=== PATIENT | male | born 1980 | race Caucasian/White ===

== ENCOUNTER 2016-09-03 00:07 | Inpatient (IN) | payer OTHER ==
--- NOTE | 2016-09-03 00:37 | HP ---
COWS - Scale Resting Pulse: 0= ME 80 or Below Sweatin=Flushed/Facial Moisture Restless Observation: 3= Extraneous Movement Pupil Size: 1= Pupils >than Normal Bone or Joint Aches: 4=Acute Joint/Muscle Pain Runny Nose/ Eye Tearin= Runny Nose/Eyes GI Upset > 30mins: 2= Nausea/Diarrhea Tremor Observation: 1= Tremor [place], Not Seen Yawning Observation: 0= None Anxiety or Irritability: 2=Irritable/Anxious Goose Flesh Skin: 0=Smooth Skin COWS Score: 17 CIWA Score - CIWA Score Nausea/Vomitin Muscle Tremors: 3 Anxiety: 5 Agitation: 5 Paroxysmal Sweats: 1-Minimal Palms Moist Orientation: 0-Oriented Tacttile Disturbances: 3-Moderate Itch/Numb/Burn Auditory Disturbances: 2-Mild Harshness/Frighten Visual Disturbances: 2-Mild Sensitivity Headache: 3-Moderate CIWA-Ar Total Score: 27 Admission ROS S - HPI Chief Complaint: WITHDRAWAL SX'S Allergies/Adverse Reactions: Allergies Allergy/AdvReac Type Severity Reaction Status Date / Time No Known Drug Allergies Allergy Verified 10/21/15 16:11 fish derived AdvReac Severe Vomiting Verified 09/03/16 00:26 haloperidol lactate AdvReac Severe lock jaw Verified 09/03/16 00:26 [From Haldol] shellfish derived AdvReac Severe Vomiting Verified 09/03/16 00:26 SEAFOOD AdvReac Severe Vomiting Uncoded 09/03/16 00:26 History of Present Illness: 36 Y.O MALE WITH ALCOHOLISM AND OPIOID DEPENDENCE HERE FOR DETOX TXMENT. CLIENT IS KNOWN TO [facility]. LAST ADMIT 04/2016. HE REPORTS PMHX OF HIV NON COMPLIANT WITH STRIBILD. Exam Limitations: No Limitations - Ebola screening Have you traveled outside of the country in the last 21 days: No (N) Have you had contact with anyone from an Ebola affected area: No Do you have a fever: No - Review of Systems Constitutional: Loss of Appetite, Malaise, Night Sweats EENT: reports: No Symptoms Reported Respiratory: reports: No Symptoms reported Cardiac: reports: No Symptoms Reported GI: reports: Nausea, Poor Appetite : reports: No Symptoms Reported Musculoskeletal: reports: Joint Pain Integumentary: reports: No Symptoms Reported Neuro: reports: Headache Endocrine: reports: No Symptoms Reported Hematology: reports: No Symptoms Reported Psychiatric: reports: Anxious Other Systems: Reviewed and Negative Patient History - Patient Medical History Hx Anemia: No Hx Asthma: No Hx Chronic Obstructive Pulmonary Disease (COPD): No Hx Cancer: No Hx Cardiac Disorders: No Hx Congestive Heart Failure: No Hx Hypertension: No Hx Hypercholesterolemia: No Hx Pacemaker: No HX Cerebrovascular Accident: No Hx Seizures: No Hx Dementia: No Hx Diabetes: No Hx Gastrointestinal Disorders: No Hx Liver Disease: Yes (HAD HEP. B) Hx Genitourinary Disorders: No Hx Sexually Transmitted Disorders: Yes (HIV) Hx Renal Disease (ESRD): No Hx Thyroid Disease: No Hx Human Immunodeficiency Virus (HIV): Yes (since 2000) Hx Hepatitis C: No Hx Depression: Yes Hx Suicide Attempt: Yes (stem cutter 2000) Hx Bipolar Disorder: No Hx Schizophrenia: No Other Medical History: ANXIETY - Patient Surgical History Past Surgical History: Yes Hx Neurologic Surgery: No Hx Cataract Extraction: No Hx Cardiac Surgery: No Hx Lung Surgery: No Hx Breast Surgery: No Hx Breast Biopsy: No Hx Abdominal Surgery: Yes Hx Appendectomy: No Hx Cholecystectomy: No Hx Genitourinary Surgery: No Hx Section: No Hx Orthopedic Surgery: No Other Surgical History: right inguinal hernia repair 2014 [facility] Anesthesia Reaction: No - PPD History Previous Implant?: Yes Documented Results: Negative w/o proof Implanted On Prior [facility] Admission?: Yes Date: 05/27/16 Results: no reading PPD to be Administered?: Yes - Smoking Cessation Smoking history: Current every day smoker Have you smoked in the past 12 months: Yes Aproximately how many cigarettes per day: 30 Cigars Per Day: 0 Hx Chewing Tobacco Use: No Initiated information on smoking cessation: Yes 'Breaking Loose' booklet given: 09/03/16 - Substance & Tx. History Hx Alcohol Use: Yes Hx Substance Use: Yes Substance Use Type: Alcohol, Cocaine, Heroin Hx Substance Use Treatment: Yes ([facility]) - Substances Abused HEROIN Route: Injection Frequency: Daily Amount used: 5 BAGS Age of first use: 30 Date of Last Use: 09/02/16 COCAINE Route: Inhalation Frequency: Daily Amount used: $100 Age of first use: 24 Date of Last Use: 09/02/16 BEER Route: Oral Frequency: Daily Amount used: 18- 24 OZ Age of first use: 12 Date of Last Use: 09/02/16 Family Disease History - Family Disease History Family Disease History: Diabetes: Grandparent ([id number];GF-CAD), Mother ( leukemia), [place]: Mother, Other: Father (dsa,alcohol) Admission Physical Exam [facility] - Physical General Appearance: Yes: Disheveled, Mild Distress, Irritable, Anxious HEENTM: Yes: Normocephalic, Other (DRY MM) Respiratory: Yes: Chest Non-Tender, Lungs Clear, Normal Breath Sounds, No Respiratory Distress, No Accessory Muscle Use Neck: Yes: No masses,lesions,Nodules, Supple, Trachea in good position Breast: Yes: Breast Exam Deferred Cardiology: Yes: Regular Rhythm, Regular Rate, S1, S2 Abdominal: Yes: Non Tender, Flat Genitourinary: Yes: Within Normal Limits Back: Yes: Normal Inspection Musculoskeletal: Yes: Gait Steady Extremities: Yes: Normal Range of Motion, Non-Tender, Tremors Neurological: Yes: Fully Oriented, Alert, Motor Strength 5/5 Integumentary: Yes: Dry, Track Wolff, Other (BRUISING NOTED TO BOTH ARMS SUPERFIFCAL ABRASIONS FROM SCRATCHING NOTED TO BACK OF ARMS) Lymphatic: Yes: Within Normal Limits - Diagnostic (1) Alcohol dependence with uncomplicated withdrawal Current Visit: Yes Status: Acute (2) Opioid dependence with withdrawal Current Visit: Yes Status: Acute (3) Acquired immune deficiency syndrome (AIDS) Current Visit: Yes Status: Chronic (4) Cocaine dependence Current Visit: No Status: Chronic Qualifiers: Substance use status: uncomplicated Qualified Code(s): F14.20 - Cocaine dependence, uncomplicated (5) Nicotine dependence Current Visit: No Status: Chronic Qualifiers: Nicotine product type: cigarettes Substance use status: uncomplicated Qualified Code(s): F17.210 - Nicotine dependence, cigarettes, uncomplicated Cleared for Admission [facility] - Detox or Rehab [facility] Level of Care: Medically Managed Detox Regimen/Protocol: Methadone/Librium [facility] Breath Alcohol Content Breath Alcohol Content: 0.006 Vital Signs - Vital Signs Vital Signs Refused: No Temperature: 96.1 F Temperature Source: Oral Pulse Rate: 77 Respiratory Rate: 18 Blood Pressure: 118/69 BP Location: Left Arm Blood Pressure Position: Sitting - Height Height: 5 ft 8 in - Weight Weight: 63.503 kg Weight Measurement Method: Standing Scale Body Mass Index (BMI): 21.2 Urine Drug Screen - Test Device Lot Number: [id number] Expiration Date: 04/28/18 - Control Is Test Valid: Yes - Results Drug Screen Negative: Yes Urine Drug Screen Results: DEYSI-Cocaine, OPI-Opiates, OXY-Oxycodone
[2016-09-03 00:44] VITALS: BMI 21.2
[2016-09-03] MEDS ORDERED: IBUPROFEN 400 MG TABLET (FP) PO PRN (00:45)
[2016-09-03] MEDS ORDERED: METHADONE HCL 10 MG TABLET (FOR DETOX USE ONLY) PO ONE ×3 (00:45→22:00)
[2016-09-03] MEDS ORDERED: chlordiazePOXIDE HCL 25 MG CAPSULE PO ONE (00:45)
[2016-09-03] MEDS ORDERED: chlordiazePOXIDE HCL 25 MG CAPSULE PO PRN (00:45)
[2016-09-03] MEDS ORDERED: LOPERAMIDE HCL 2 MG CAPSULE PO PRN (00:45)
[2016-09-03] MEDS ORDERED: P-EPHED 60MG/TRIPROLIDI 2.5MG TABLET PO PRN (00:45)
[2016-09-03] MEDS ORDERED: ACETAMINOPHEN 325 MG TABLET (FP) PO PRN (00:45)
[2016-09-03] MEDS ORDERED: MAGNESIUM HYDROX 2400MG/30ML ORAL SUSPENSION 30 ML CUP PO PRN (00:45)
[2016-09-03] MEDS ORDERED: NICOTINE POLACRILEX 2 MG GUM BUC PRN (00:45)
[2016-09-03] MEDS ORDERED: hydrOXYzine PAMOATE 50 MG CAPSULE (FP) PO PRN (00:45)
[2016-09-03] MEDS ORDERED: MAG HYDROX/AL HYDROX/SIMETH 30 ML UNIT-DOSE CUP PO PRN (00:45)
[2016-09-03] MEDS ORDERED: MENTHOL/PHENOL 1 EACH UD MM PRN (00:45)
[2016-09-03] MEDS ORDERED: MAGNESIUM CITRATE 300 ML BOTTLE PO PRN (00:45)
[2016-09-03] MEDS: chlordiazePOXIDE HCL 25 MG CAPSULE PO SCH ×4 (05:08→22:07)
[2016-09-03] MEDS ORDERED: INFLUENZA VACCINE 45 MCG/0.5 ML (MDV 16-17) IM ONE (07:01)
[2016-09-03] MEDS ORDERED: BACITRACIN 30 GM TUBE TOPICAL OINTMENT TP SCH (10:00)
[2016-09-03] MEDS: NICOTINE 21 MG/24 HOURS TOPICAL PATCH TD SCH (10:39)
[2016-09-03] MEDS: PRENATAL VITAMINS W/ FOLIC ACID TABLET (FP) PO SCH (10:39)
[2016-09-03 10:44] LABS: ALBUMIN 3.1 g/dl (3.4-5.0); ALK PHOS 72 U/L (45-117); ANION GAP 7 (8-16); BILIRUBIN,TOTAL 0.4 mg/dL (0.2-1.0); CALCIUM 8.2 mg/dL (8.5-10.1); CO2 28 mmol/L (21-32); CREATININE 0.8 mg/dL (0.7-1.3); GLUCOSE,RANDOM 86 mg/dL (74-106); SGOT/AST 20 U/L (15-37); SGPT/ALT 21 U/L (12-78); TOT PROT 7.2 g/dl (6.4-8.2)
[2016-09-03 11:10] LABS: MCH 25.6 pg (25.7-33.7); MCHC 32.8 g/dl (32.0-35.9); MEAN CELL VOLUME 78.1 fl (80-96); MEAN PLT VOLUME 9.2 fl (7.5-11.1); PLATELET COUNT 251 K/MM3 (134-434); RDW 14.3 % (11.9-15.9); WHITE BLOOD COUNT 4.6 K/mm3 (4.0-10.0)
--- NOTE | 2016-09-03 11:20 | PN ---
[facility] CIWA - CIWA Score Nausea/Vomitin-No Nausea/No Vomiting Muscle Tremors: 4-Moderate,w/Arms Extend Anxiety: 3 Agitation: 4-Moderately Restless Paroxysmal Sweats: 3 Orientation: 0-Oriented Tacttile Disturbances: 0-None Auditory Disturbances: 0-None Visual Disturbances: 0-None Headache: 1-Very Mild CIWA-Ar Total Score: 15 [facility] COWS - Scale Resting Pulse: 1= [place] 81-100 Sweatin=Flushed/Facial Moisture Restless Observation: 0= Sits Still Pupil Size: 0= Normal to Room Light Bone or Joint Aches: 2= Severe Diffuse Aches Runny Nose/ Eye Tearin= Nasal Congestion GI Upset > 30mins: 2= Nausea/Diarrhea Tremor Observation of Outstretched Hands: 2= Slight Tremor Visible Yawning Observation: 2= >3x During Session Anxiety or Irritability: 2=Irritable/Anxious Goose Flesh Skin: 0=Smooth Skin COWS Score: 14 S Progress Note (SOAP) Subjective: irritable i dont want to be bothered agitation interrupted sleep sweats Objective: 09/03/16 11:19 Vital Signs Temperature 98.1 F 09/03/16 10:07 Pulse Rate 83 09/03/16 10:07 Respiratory Rate 18 09/03/16 10:07 Blood Pressure 108/55 09/03/16 10:07 O2 Sat by Pulse Oximetry (%) Laboratory Tests 09/03/16 07:00 Sodium 141 Potassium 3.7 Chloride 106 Carbon Dioxide 28 Anion Gap 7 L BUN 6 L Creatinine 0.8 D Creat Clearance w eGFR > 60 Random Glucose 86 Calcium 8.2 L Total Bilirubin 0.4 D AST 20 D ALT 21 D Alkaline Phosphatase 72 D Total Protein 7.2 Albumin 3.1 L labs pending awake/alert lying in bed no acute distress Assessment: 09/03/16 11:19 withdrawal sx Plan: continue detox increase fluids uncooperative labs pending
[2016-09-03] MEDS ORDERED: PNEUMOC 13-VAL CONJ-DIP CRM/PF 0.5 ML DISP.SYRIN IM ONE (12:00)
--- NOTE | 2016-09-03 12:30 | CONSULT ---
[facility] Psychiatric Consult - Data Date of interview: 09/03/16 Admission source: [facility] Identifying data: Readmission to [facility] for this 36 y/o male seeking detox treatment on for alcohol,heroin and cocaine dependence.Patient is ,a father of two,homeless,unemployed and aupported on SSI benefits. Substance Abuse History: - Smoking Cessation. Smoking history: Current every day smoker. Have you smoked in the past 12 months: Yes. Aproximately how many cigarettes per day: 30. Cigars Per Day: 0. Hx Chewing Tobacco Use: No. Initiated information on smoking cessation: Yes. 'Breaking Loose' booklet given : 09/03/16. - Substance & Tx. History. Hx Alcohol Use: Yes. Hx Substance Use : Yes. Substance Use Type: Alcohol, Cocaine, Heroin. Hx Substance Use Treatment: Yes ([facility]). - Substances Abused. HEROIN. Route: Injection. Frequency: Daily. Amount used: 5 BAGS. Age of first use: 30. Date of Last Use : 09/02/16. COCAINE. Route: Inhalation. Frequency: Daily. Amount used: $ 100. Age of first use: 24. Date of Last Use: 09/02/16. BEER. Route: Oral. Frequency: Daily. Amount used: 18- 24 OZ. Age of first use: 12. Date of Last Use: 09/02/16. Confirmed by patient. Medical History: Significant for HIV infection since 2000,hepatitis B and history of right inguinal herniorraphy in 2014. Psychiatric History: Patient is a hostile,evasive and indifferent historian." I had a few psychiatric hospitalizations years ago but I am fine now." Previous records indicate a history of multiple psychiatric hospitalizations,suicide attempts (self-mutilation) and several diagnoses (bipolar disorder,bordeline personality disorder).Patient denies any recent contact with OPD care providers.Off psychotropic medications for months. Physical/Sexual Abuse/Trauma History: Patient denies. Additional Comment: Urine Drug Screen Results: DEYSI-Cocaine, OPI-Opiates, OXY- Oxycodone.Noted. Mental Status Exam - Mental Status Exam Alert and Oriented to: Time, Place, Person Cognitive Function: Grossly Intact Patient Appearance: Disheveled Mood: Nervous, Irritable Affect: Mood Congruent Patient Behavior: Fatigued, Uncooperative, Resitive to Care Speech Pattern: Clear Voice Loudness: Normal Thought Process: Goal Oriented Thought Disorder: Not Present Hallucinations: Denies Suicidal Ideation: Denies Homicidal Ideation: Denies Insight/Judgement: Poor Sleep: Well Appetite: Good Muscle strength/Tone: Normal Gait/Station: Normal Psychiatric Findings - Problem List ([place] 1, 2,3) (1) Alcohol dependence with uncomplicated withdrawal Current Visit: Yes Status: Acute (2) Opioid dependence with withdrawal Current Visit: Yes Status: Acute (3) Cocaine dependence Current Visit: Yes Status: Acute Qualifiers: Substance use status: uncomplicated Qualified Code(s): F14.20 - Cocaine dependence, uncomplicated (4) Nicotine dependence Current Visit: Yes Status: Acute (5) Substance induced mood disorder Current Visit: Yes Status: Acute (6) Acquired immune deficiency syndrome (AIDS) Current Visit: Yes Status: Chronic (7) Weight loss Current Visit: No Status: Acute - Initial Treatment Plan Initial Treatment Plan: Psychoeducation.Detoxification.Observation.
--- NOTE | 2016-09-03 15:17 | PN ---
[facility] Progress Note Note: pt transferred to [facility] to continue detox because his is on [facility] to begin her detox regimen. effective immediately.
[2016-09-03] MEDS: BACITRACIN 0.9 GM PACKET TP SCH (22:06)
[2016-09-03] MEDS: THIAMINE HCL 100 MG TABLET (FP) PO SCH (22:07)
[2016-09-03] MEDS: diphenhydrAMINE HCL 50 MG CAPSULE PO PRN (22:07)
[2016-09-04] MEDS: chlordiazePOXIDE HCL 25 MG CAPSULE PO SCH ×4 (05:38→22:27)
[2016-09-04] MEDS ORDERED: IBUPROFEN 400 MG TABLET (FP) PO PRN (09:08)
[2016-09-04] MEDS ORDERED: METHADONE HCL 5 MG TABLET (FOR DETOX USE ONLY) PO SCH (10:00)
[2016-09-04] MEDS: NICOTINE 21 MG/24 HOURS TOPICAL PATCH TD SCH (10:13)
[2016-09-04] MEDS: BACITRACIN 0.9 GM PACKET TP SCH ×2 (10:13→22:27)
[2016-09-04] MEDS: PRENATAL VITAMINS W/ FOLIC ACID TABLET (FP) PO SCH (10:13)
--- NOTE | 2016-09-04 10:14 | PN ---
[facility] CIWA - CIWA Score Nausea/Vomitin-No Nausea/No Vomiting Muscle Tremors: 3 Anxiety: 4-Mod. Anxious/Guarded Agitation: 3 Paroxysmal Sweats: 3 Orientation: 0-Oriented Tacttile Disturbances: 1-Very Mild Itch/Numbness Auditory Disturbances: 0-None Visual Disturbances: 0-None Headache: 0-None Present CIWA-Ar Total Score: 14 [facility] COWS - Scale Resting Pulse: 1= [place] 81-100 Sweatin=Flushed/Facial Moisture Restless Observation: 1= Difficult to Sit Still Pupil Size: 0= Normal to Room Light Bone or Joint Aches: 2= Severe Diffuse Aches Runny Nose/ Eye Tearin= Runny Nose/Eyes GI Upset > 30mins: 2= Nausea/Diarrhea Tremor Observation of Outstretched Hands: 2= Slight Tremor Visible Yawning Observation: 1= 1-2x During Session Anxiety or Irritability: 2=Irritable/Anxious Goose Flesh Skin: 0=Smooth Skin COWS Score: 15 [facility] Progress Note (SOAP) Subjective: ANXIETY,TREMORS,SWEATING,INTERRUPTED SLEEP,RESTLESS Objective: 09/04/16 10:15 Last Vital Signs Temp Pulse Resp BP Pulse Ox 98.7 F 83 18 117/75 09/04/16 06:20 09/04/16 06:20 09/04/16 06:20 09/04/16 06:20 Laboratory Tests 09/03/16 09/03/16 09/03/16 07:00 07:00 07:00 WBC 4.6 RBC 4.53 Hgb 11.6 L Hct 35.4 MCV 78.1 L MCHC 32.8 RDW 14.3 D Plt Count 251 MPV 9.2 Sodium 141 Potassium 3.7 Chloride 106 Carbon Dioxide 28 Anion Gap 7 L BUN 6 L Creatinine 0.8 D Creat Clearance w eGFR > 60 Random Glucose 86 Calcium 8.2 L Total Bilirubin 0.4 D AST 20 D ALT 21 D Alkaline Phosphatase 72 D Total Protein 7.2 Albumin 3.1 L RPR Titer Nonreactive LABS NOTED Assessment: 09/04/16 10:16 WITHDRAWAL SX. Plan: CONTINUE DETOX
[2016-09-04 11:32] LABS: URINE APPEARANCE CLEAR; URINE BILIRUBIN NEGATIVE (NEGATIVE); URINE BLOOD NEGATIVE (NEGATIVE); URINE COLOR LTYELLOW; URINE GLUCOSE (UA) NEGATIVE (NEGATIVE); URINE KETONE NEGATIVE (NEGATIVE); URINE LEUK ESTERASE NEGATIVE (NEGATIVE); URINE NITRITE NEGATIVE (NEGATIVE); URINE PROTEIN NEGATIVE (NEGATIVE); URINE UROBILINOGEN NEGATIVE E.U./dl (0.2-1.0)
[2016-09-04] MEDS: guaiFENesin/D-METHORPHAN HB 10 ML UNIT-DOSE CUPS PO PRN (15:49)
[2016-09-04] MEDS: THIAMINE HCL 100 MG TABLET (FP) PO SCH (22:27)
[2016-09-04] MEDS: diphenhydrAMINE HCL 50 MG CAPSULE PO PRN (22:29)
[2016-09-05] MEDS: chlordiazePOXIDE 5 MG CAPSULE PO SCH ×4 (05:42→22:05)
[2016-09-05] MEDS: BACITRACIN 0.9 GM PACKET TP SCH ×2 (10:08→22:05)
[2016-09-05] MEDS: PRENATAL VITAMINS W/ FOLIC ACID TABLET (FP) PO SCH (10:08)
[2016-09-05] MEDS: METHADONE HCL 5 MG TABLET (FOR DETOX USE ONLY) PO SCH (10:09)
[2016-09-05] MEDS: NICOTINE 21 MG/24 HOURS TOPICAL PATCH TD SCH (10:09)
[2016-09-05] MEDS: guaiFENesin/D-METHORPHAN HB 10 ML UNIT-DOSE CUPS PO PRN (10:14)
--- NOTE | 2016-09-05 11:28 | EKG ---
Test Reason : Blood Pressure : / mmHG Vent. Rate : 073 BPM Atrial Rate : 073 BPM P-R Int : 134 ms QRS Dur : 092 ms QT Int : 390 ms P-R-T Axes : 015 060 034 degrees QTc Int : 429 ms NORMAL SINUS RHYTHM NORMAL ECG WHEN COMPARED WITH ECG OF 19-JUN-2009 17:21, NO SIGNIFICANT CHANGE WAS FOUND Confirmed by ABE GRADY MD ([id number]) on 09/05/2016 11:28:05 AM Referred By: Confirmed By:ABE GRADY MD
[2016-09-05] MEDS: IBUPROFEN 600 MG TABLET (FP) PO PRN (11:34)
--- NOTE | 2016-09-05 13:08 | PN ---
[facility] Progress Note (SOAP) Subjective: Anxiety, restless, interrupted sleep, c/o right shoulder/arm pain requesting sling Objective: 09/05/16 13:04 Last Vital Signs Temp Pulse Resp BP Pulse Ox 97.6 F 100 H 18 108/73 09/05/16 10:48 09/05/16 10:48 09/05/16 10:48 09/05/16 10:48 Laboratory Tests 09/03/16 09/03/16 09/03/16 07:00 07:00 07:00 WBC 4.6 RBC 4.53 Hgb 11.6 L Hct 35.4 MCV 78.1 L MCHC 32.8 RDW 14.3 D Plt Count 251 MPV 9.2 Sodium 141 Potassium 3.7 Chloride 106 Carbon Dioxide 28 Anion Gap 7 L BUN 6 L Creatinine 0.8 D Creat Clearance w eGFR > 60 Random Glucose 86 Calcium 8.2 L Total Bilirubin 0.4 D AST 20 D ALT 21 D Alkaline Phosphatase 72 D Total Protein 7.2 Albumin 3.1 L Urine Color Urine Appearance Urine pH Ur Specific [place] Urine Protein Urine Glucose (UA) Urine Ketones Urine Blood Urine Nitrite Urine Bilirubin Urine Urobilinogen Ur Leukocyte Esterase RPR Titer Nonreactive 09/04/16 11:00 WBC RBC Hgb Hct MCV MCHC RDW Plt Count MPV Sodium Potassium Chloride Carbon Dioxide Anion Gap BUN Creatinine Creat Clearance w eGFR Random Glucose Calcium Total Bilirubin AST ALT Alkaline Phosphatase Total Protein Albumin Urine Color Ltyellow Urine Appearance Clear Urine pH 7.0 Ur Specific [place] 1.013 Urine Protein Negative Urine Glucose (UA) Negative Urine Ketones Negative Urine Blood Negative Urine Nitrite Negative Urine Bilirubin Negative Urine Urobilinogen Negative Ur Leukocyte Esterase Negative RPR Titer Labs noted: serum albumin 3.1 PE: right arm appears swollen at the wrist, hands/digits. Patient denies any injury and refused to elaborate stating that he is fine and only needs a sling. As per patient he came in with his arm swollen. Limited ROM noted (patient partially cooperative with examination; examination based on observation only) Assessment: 09/05/16 13:05 Withdrawal symptoms Hypoalbuminemia Right arm/shoulder/hand pain with swelling Plan: Continue detox Hypoalbuminemia: continue diet, ensure 1 can BID Right arm/shoulder/hand pain with swelling: xray right shoulder, forearm and hand, continue motrin prn, apply sling, elevate extremity on pillow/blanket when in bed
[2016-09-05] MEDS: THIAMINE HCL 100 MG TABLET (FP) PO SCH (22:05)
[2016-09-05] MEDS: diphenhydrAMINE HCL 50 MG CAPSULE PO PRN (22:07)
[2016-09-06] MEDS: chlordiazePOXIDE HCL 10 MG CAPSULE PO SCH ×2 (05:39→10:05)
[2016-09-06] MEDS: NICOTINE 21 MG/24 HOURS TOPICAL PATCH TD SCH (10:05)
[2016-09-06] MEDS: PRENATAL VITAMINS W/ FOLIC ACID TABLET (FP) PO SCH (10:05)
[2016-09-06] MEDS: METHADONE HCL 5 MG TABLET (FOR DETOX USE ONLY) PO SCH (10:05)
[2016-09-06] MEDS: BACITRACIN 0.9 GM PACKET TP SCH (10:05)
[2016-09-06] MEDS: IBUPROFEN 600 MG TABLET (FP) PO PRN (10:06)
--- NOTE | 2016-09-06 10:28 | PN ---
[facility] Progress Note (SOAP) Subjective: alert,irritable,anxious,interrupted sleep,tremor,pain in the body and back Objective: 09/06/16 10:27 Vital Signs Temperature 99.7 F H 09/06/16 09:46 Pulse Rate 116 H 09/06/16 09:46 Respiratory Rate 20 09/06/16 09:46 Blood Pressure 115/67 09/06/16 09:46 O2 Sat by Pulse Oximetry (%) Assessment: 09/06/16 10:28 withdrawal symptom Plan: continue detox
--- NOTE | 2016-09-06 11:23 | PN ---
[facility] Progress Note Note: swelling of right hand and right wrist,wearing arm sling,awaiting for xray right hand,right wrist and right shoulder
[2016-09-06 13:56] VITALS: BP 109/74; PULSE 103; TEMP 96.9
--- NOTE | 2016-09-06 15:38 | DS ---
[facility] Detox Discharge Summary Admission Date: 09/03/16 Discharge Date: 09/06/16 - History Present History: Alcohol Dependence, Cocaine Dependence, Opioid Dependence Additional Comments: patient did not want to complete treatment,signed release ama,did not want to wait,advise follow up with pmd for medical problem Pertinent Past History: aids nicotine dependence - Physical Exam Results Vital Signs: Vital Signs Temperature 96.9 F L 09/06/16 13:54 Pulse Rate 103 H 09/06/16 13:54 Respiratory Rate 20 09/06/16 13:54 Blood Pressure 109/74 09/06/16 13:54 O2 Sat by Pulse Oximetry (%) Pertinent Admission Physical Exam Findings: withdrawal symptom - Treatment Patient has Accepted a Rehab Referral to: declined - Medication Discharge Medications: Ambulatory Orders Elviteg/Marilu/Emtric/Tenofo Dis [Stribild Tablet] 1 each PO DAILY 02/23/15 Quetiapine Fumarate [Seroquel -] 50 mg PO HS #30 10/22/15 - AMA Did Patient Leave Against Medical Advice: Yes
--- NOTE | 2016-09-06 15:38 | PN ---
S Progress Note Note: patient did not want to complete treatment,did not want to wait,signed release ama,advise follow up with pmd for medical problem,has all medications at home
[2016-09-07] MEDS ORDERED: METHADONE HCL 10 MG TABLET (FOR DETOX USE ONLY) PO SCH (10:00)
[2016-09-08] MEDS ORDERED: METHADONE HCL 10 MG TABLET (FOR DETOX USE ONLY) PO SCH (06:00)
== END 2016-09-06 15:30 | disposition left against medical advice (07) | DRG 770 ==
LOC: YASAS 00:07 → Y6N 00:53 → Y3N 15:35
PROVIDERS: ADMIT Internal Medicine; ATTEND Internal Medicine
PROC: HZ2ZZZZ Detoxification Services for Substance Abuse Treatment (ICD-10-PCS; principal; 2016-09-03)
DX: F11.23 Opioid dependence with withdrawal (principal); F10.230 Alcohol dependence with withdrawal, uncomplicated; F14.20 Cocaine dependence, uncomplicated; F17.210 Nicotine dependence, cigarettes, uncomplicated; F19.24 Other psychoactive substance dependence with psychoactive substance-induced mood disorder; B20 Human immunodeficiency virus [HIV] disease; R22.31 Localized swelling, mass and lump, right upper limb; E88.09 Other disorders of plasma-protein metabolism, not elsewhere classified; Z87.898 Personal history of other specified conditions; Z91.14 Patient's other noncompliance with medication regimen; Z86.19 Personal history of other infectious and parasitic diseases; Z91.5 Personal history of self-harm
CPT/HCPCS: 36415; 73090-TC-RT; 73110-TC-RT; 73130-TC-RT; 80053; 81003; 85027; 86593; 93005; 93010

== ENCOUNTER 2018-03-08 10:30 | Inpatient (IN) | payer OTHER ==
[2018-03-08 11:05] VITALS: BMI 14.8
--- NOTE | 2018-03-08 11:59 | HP ---
COWS - Scale Resting Pulse: 1= OK 81-100 Sweatin= Chills/Flushing Restless Observation: 1= Difficult to Sit Still Pupil Size: 0= Normal to Room Light Bone or Joint Aches: 2= Severe Diffuse Aches Runny Nose/ Eye Tearin= Runny Nose/Eyes GI Upset > 30mins: 2= Nausea/Diarrhea Tremor Observation: 2= Slight Tremor Visible Yawning Observation: 2= >3x During Session Anxiety or Irritability: 2=Irritable/Anxious Goose Flesh Skin: 0=Smooth Skin COWS Score: 15 CIWA Score - CIWA Score Nausea/Vomitin-Mild Nausea/No Vomiting Muscle Tremors: 4-Moderate,w/Arms Extend Anxiety: 4-Mod. Anxious/Guarded Agitation: 4-Moderately Restless Paroxysmal Sweats: 1-Minimal Palms Moist Orientation: 0-Oriented Tacttile Disturbances: 1-Very Mild Itch/Numbness Auditory Disturbances: 0-None Visual Disturbances: 0-None Headache: 0-None Present CIWA-Ar Total Score: 15 Admission [facility] - HPI Chief Complaint: opiate and alcohol withdrawal sx Allergies/Adverse Reactions: Allergies Allergy/AdvReac Type Severity Reaction Status Date / Time No Known Drug Allergies Allergy Verified 03/08/18 11:54 haloperidol lactate AdvReac Severe lock jaw Verified 03/08/18 11:54 [From Haldol] SEAFOOD Allergy Severe Hives Uncoded 03/08/18 11:54 History of Present Illness: 37 years old male with long history of alcohol and opiate and nicotine dependence has hiv hepatitis c bipolar ii is admitted to detox Exam Limitations: No Limitations - Ebola screening Have you traveled outside of the country in the last 21 days: No (N) Have you had contact with anyone from an Ebola affected area: No Have you been sick,other than usual withdrawal symptoms: No Do you have a fever: No - Review of Systems Constitutional: Loss of Appetite, Changes in sleep, Unintentional Wgt. Loss, Unexplained wgt Loss EENT: reports: No Symptoms Reported Respiratory: reports: No Symptoms reported Cardiac: reports: No Symptoms Reported GI: reports: Nausea, Poor Appetite, Poor Fluid Intake, Abdominal cramping : reports: No Symptoms Reported Musculoskeletal: reports: Back Pain, Joint Pain, Muscle Pain, Neck Pain Integumentary: reports: Change in Color (arms), Erythema (left eye brow fell 03/06) Neuro: reports: Tremors Endocrine: reports: No Symptoms Reported Hematology: reports: No Symptoms Reported Psychiatric: reports: Judgement Intact, Orientated x3, Anxious, Depressed Other Systems: Reviewed and Negative Patient History - Patient Medical History Hx Anemia: No Hx Asthma: No Hx Chronic Obstructive Pulmonary Disease (COPD): No Hx Cancer: No Hx Cardiac Disorders: No Hx Congestive Heart Failure: No Hx Hypertension: No Hx Hypercholesterolemia: No Hx Pacemaker: No HX Cerebrovascular Accident: No Hx Seizures: No Hx Dementia: No Hx Diabetes: No Hx Gastrointestinal Disorders: No Hx Liver Disease: Yes (HAD HEP. B) Hx Genitourinary Disorders: No Hx Sexually Transmitted Disorders: Yes (HIV+) Hx Renal Disease (ESRD): No Hx Thyroid Disease: No Hx Human Immunodeficiency Virus (HIV): Yes (since 2000) Hx Hepatitis C: Yes Hx Depression: No Hx Suicide Attempt: Yes (cut last age 25) Hx Bipolar Disorder: Yes Hx Schizophrenia: No - Patient Surgical History Past Surgical History: Yes Hx Neurologic Surgery: No Hx Cataract Extraction: No Hx Cardiac Surgery: No Hx Lung Surgery: No Hx Breast Surgery: No Hx Breast Biopsy: No Hx Abdominal Surgery: Yes Hx Appendectomy: No Hx Cholecystectomy: No Hx Genitourinary Surgery: No Hx Orthopedic Surgery: No Other Surgical History: right inguinal hernia repair 2014 [facility] Anesthesia Reaction: No - PPD History Previous Implant?: Yes Documented Results: Negative w/proof Implanted On Prior R Admission?: Yes Date: 09/05/16 Results: no reading PPD to be Administered?: Yes - Smoking Cessation Smoking history: Current every day smoker Have you smoked in the past 12 months: Yes Aproximately how many cigarettes per day: 3 Cigars Per Day: 0 Hx Chewing Tobacco Use: No Initiated information on smoking cessation: Yes 'Breaking Loose' booklet given: 03/08/18 - Substance & Tx. History Hx Alcohol Use: Yes Hx Substance Use: Yes Substance Use Type: Alcohol, Cocaine, Heroin, Opiates Hx Substance Use Treatment: Yes (06/2017 [facility]) - Substances Abused Heroin Route: Injection Frequency: Daily Amount used: 15-20 bags Age of first use: 19 Date of Last Use: 03/08/18 Cocaine Route: Smoking Frequency: Daily Amount used: $200-300 Age of first use: 15 Date of Last Use: 03/08/18 Alcohol-vodka/bia Route: Oral Frequency: Daily Amount used: 2 pts./4-6 (12 oz.) Age of first use: 16 Date of Last Use: 03/07/18 Family Disease History - Family Disease History Family Disease History: Diabetes: Grandparent ([id number];GF-CAD), Mother ( leukemia), CA: Mother, Other: Father (alcohol) Admission Physical Exam [facility] - Vital Signs Vital Signs: Vital Signs - 24 hr 03/08/18 11:03 Temperature 97.2 F L Pulse Rate 97 H Respiratory 16 Rate Blood Pressure 105/68 - Physical General Appearance: Yes: Appropriately Dressed, Mild Distress, Thin, Tremorous, Irritable, Sweating, Anxious HEENTM: Yes: Hearing grossly Normal, Normocephalic, Normal Voice Respiratory: Yes: Chest Non-Tender, Lungs Clear, Normal Breath Sounds, No Respiratory Distress, No Accessory Muscle Use Neck: Yes: Supple, Trachea in good position Breast: Yes: Breasts Symetrical, No Discharge Cardiology: Yes: Regular Rhythm, S1, S2, Tachycardia Abdominal: Yes: Non Tender, Flat, Increased Bowel Sounds Genitourinary: Yes: Within Normal Limits Back: Yes: Normal Inspection Musculoskeletal: Yes: full range of Motion, Gait Steady Extremities: Yes: Normal Inspection, Normal Range of Motion, Non-Tender, Tremors , Swelling (left leg) Neurological: Yes: Fully Oriented, Alert, Normal Response, Depressed Affect Integumentary: Yes: Warm, Track Wolff Lymphatic: Yes: Within Normal Limits - Diagnostic (1) Alcohol dependence with uncomplicated withdrawal Current Visit: Yes Status: Acute (2) Nicotine dependence Current Visit: Yes Status: Acute (3) Opioid dependence with withdrawal Current Visit: Yes Status: Acute (4) Weight loss Current Visit: Yes Status: Acute (5) Nicotine dependence Current Visit: Yes Status: Acute Qualifiers: Nicotine product type: cigarettes Substance use status: in withdrawal Qualified Code(s): F17.213 - Nicotine dependence, cigarettes, with withdrawal Cleared for Admission [facility] - Detox or Rehab [facility] Level of Care: Medically Managed Detox Regimen/Protocol: Methadone/Librium [facility] Breath Alcohol Content Breath Alcohol Content: 0 Urine Drug Screen - Control Is Test Valid: Yes - Results Drug Screen Negative: No Urine Drug Screen Results: DEYSI-Cocaine, OPI-Opiates, MET-Methamphetamine, MTD- Methadone, TCA-Tricyclic Antidepress
[2018-03-08] MEDS ORDERED: MAGNESIUM HYDROX 2400MG/30ML ORAL SUSPENSION 30 ML CUP PO PRN (12:09)
[2018-03-08] MEDS ORDERED: LOPERAMIDE HCL 2 MG CAPSULE PO PRN (12:09)
[2018-03-08] MEDS ORDERED: IBUPROFEN 400 MG TABLET (FP) PO PRN (12:09)
[2018-03-08] MEDS ORDERED: NICOTINE POLACRILEX 2 MG GUM BUC PRN (12:09)
[2018-03-08] MEDS ORDERED: MAGNESIUM CITRATE 300 ML BOTTLE PO PRN (12:09)
[2018-03-08] MEDS ORDERED: MENTHOL/PHENOL 1 EACH UD MM PRN (12:09)
[2018-03-08] MEDS ORDERED: ACETAMINOPHEN 325 MG TABLET (FP) PO PRN (12:09)
[2018-03-08] MEDS ORDERED: guaiFENesin/D-METHORPHAN HB 10 ML UNIT-DOSE CUPS PO PRN (12:09)
[2018-03-08] MEDS ORDERED: MAG HYDROX/AL HYDROX/SIMETH 30 ML UNIT-DOSE CUP PO PRN (12:09)
[2018-03-08] MEDS ORDERED: P-EPHED 60MG/TRIPROLIDI 2.5MG TABLET PO PRN (12:09)
[2018-03-08] MEDS ORDERED: METHADONE HCL 10 MG TABLET (FOR DETOX USE ONLY) PO ONE ×2 (14:05→23:00)
[2018-03-08] MEDS: chlordiazePOXIDE HCL 25 MG CAPSULE PO PRN ×2 (14:11→22:48)
[2018-03-08] MEDS: BACITRACIN 0.9 GM PACKET TP SCH ×3 (14:11→22:47)
[2018-03-08] MEDS: NICOTINE 14 MG/24 HOURS TOPICAL PATCH TD SCH (14:13)
--- NOTE | 2018-03-08 14:20 | EKG ---
Test Reason : Blood Pressure : / mmHG Vent. Rate : 061 BPM Atrial Rate : 061 BPM P-R Int : 110 ms QRS Dur : 092 ms QT Int : 366 ms P-R-T Axes : 011 078 083 degrees QTc Int : 368 ms SINUS RHYTHM WITH SHORT WI NONSPECIFIC T WAVE ABNORMALITY ABNORMAL ECG WHEN COMPARED WITH ECG OF 03-SEP-2016 01:14, NONSPECIFIC T WAVE ABNORMALITY, WORSE IN LATERAL LEADS QT HAS SHORTENED Confirmed by ALDO SELBY, AVEL ([id number]) on 03/08/2018 2:20:01 PM Referred By: Confirmed By:AVEL CARLSON MD
[2018-03-08] MEDS: PATIENT'S OWN MEDICATION (NON-FORMULARY) (Fluconazole [Fluconazole] 200 MG) PO SCH (17:52)
[2018-03-08] MEDS: PATIENT'S OWN MEDICATION (NON-FORMULARY) (Amoxicillin/Potassium Clav [Amox-Clav 875-125 Mg PO SCH (17:52)
[2018-03-08] MEDS: PATIENT'S OWN MEDICATION (NON-FORMULARY) (Sulfamethoxazole/Trimethoprim [Sulfamethoxazole- PO SCH ×2 (17:52→22:48)
[2018-03-08] MEDS: chlordiazePOXIDE HCL 25 MG CAPSULE PO SCH ×2 (18:02→22:56)
[2018-03-08] MEDS ORDERED: MELATONIN 5 MG TABLETS PO PRN (22:00)
[2018-03-08] MEDS: THIAMINE HCL 100 MG TABLET (FP) PO SCH (22:48)
[2018-03-09] MEDS: chlordiazePOXIDE HCL 25 MG CAPSULE PO SCH ×4 (06:39→23:32)
--- NOTE | 2018-03-09 07:43 | CONSULT ---
[facility] Psychiatric Consult - Data Date of interview: 03/09/18 Admission source: [facility] Identifying data: This is 37 years old male, , father of two with long history of alcohol and opiate and nicotine dependence, with unclear past psychiatric hospitalization history, history of Bipolar Disorder, is here reporting withdrawal symptoms and seeking for detox. Substance Abuse History: Urine Drug Screen Results: DEYSI-Cocaine, OPI-Opiates, MET-Methamphetamine, MTD-Methadone, TCA-Tricyclic Antidepress. Smoking history : Current every day smoker. Have you smoked in the past 12 months: Yes. Aproximately how many cigarettes per day: 3. Cigars Per Day: 0. Hx Chewing Tobacco Use: No. Initiated information on smoking cessation: Yes. 'Breaking Loose' booklet given: 03/08/18. - Substance & Tx. History. Hx Alcohol Use: Yes. Hx Substance Use: Yes. Substance Use Type: Alcohol, Cocaine, Heroin, Opiates. Hx Substance Use Treatment: Yes (06/2017 [facility]). - Substances Abused. Heroin. Route: Injection. Frequency: Daily. Amount used: 15-20 bags. Age of first use: 19. Date of Last Use: 03/08/18. Cocaine. Route: Smoking. Frequency: Daily. Amount used: $200-300. Age of first use: 15. Date of Last Use: 03/08/18. Alcohol-vodka/bia. Route: Oral. Frequency: Daily. Amount used: 2 pts./4-6 (12 oz.). Age of first use: 16. Date of Last Use: 03/07/18 Medical History: Weight loss history Psychiatric History: As per computer there is a history of Bipolar Disorder, there is no medications history.Patient is poor historyan, reports unclear psychiatric admsision on about 10 years ago, at age [age] years old after suicidal attempt/ideations, reports no suicidal history since then, reports no medications taking prior to admission. Physical/Sexual Abuse/Trauma History: Unclear Additional Comment: Urine Drug Screen Results: DEYSI-Cocaine, OPI-Opiates, MET- Methamphetamine, MTD-Methadone, TCA-Tricyclic Antidepress. Observation. Detox Unit Care Protocol. Mental Status Exam - Mental Status Exam Alert and Oriented to: Person Cognitive Function: Fair Patient Appearance: Unkempt Mood: Sad Affect: Flat Patient Behavior: Sedated Speech Pattern: Delayed Voice Loudness: Moderately Soft/Quiet Thought Process: Circumstantial Thought Disorder: Being Controlled Hallucinations: Denies Suicidal Ideation: Denies Homicidal Ideation: Denies Insight/Judgement: Fair Sleep: Difficulty falling asleep Appetite: Weight loss Muscle strength/Tone: Mild Hypotonicity Gait/Station: Shuffling Additional Comments: Observation. Detox Unit Care Protocol. Psychiatric Findings - Problem List ([place] 1, 2,3) (1) Bipolar disorder Current Visit: Yes Status: Suspected (2) Alcohol dependence with uncomplicated withdrawal Current Visit: Yes Status: Acute (3) Nicotine dependence Current Visit: Yes Status: Acute (4) Opioid dependence with withdrawal Current Visit: Yes Status: Acute (5) Weight loss Current Visit: Yes Status: Acute (6) Cocaine dependence Current Visit: No Status: Acute Qualifiers: Substance use status: uncomplicated Qualified Code(s): F14.20 - Cocaine dependence, uncomplicated (7) Substance induced mood disorder Current Visit: No Status: Acute (8) Acquired immune deficiency syndrome (AIDS) Current Visit: No Status: Chronic - Initial Treatment Plan Initial Treatment Plan: Observation. Detox Unit Care Protocol.
--- NOTE | 2018-03-09 09:39 | PN ---
[facility] CIWA - CIWA Score Nausea/Vomitin Muscle Tremors: 3 Anxiety: 3 Agitation: 2 Paroxysmal Sweats: 1-Minimal Palms Moist Orientation: 0-Oriented Tacttile Disturbances: 1-Very Mild Itch/Numbness Auditory Disturbances: 1-Very Mild Visual Disturbances: 0-None Headache: 2-Mild CIWA-Ar Total Score: 16 [facility] COWS - Scale Resting Pulse: 0= [place] 80 or Below Sweatin= Chills/Flushing Restless Observation: 3= Extraneous Movement Pupil Size: 1= Pupils >than Normal Bone or Joint Aches: 2= Severe Diffuse Aches Runny Nose/ Eye Tearin= Runny Nose/Eyes GI Upset > 30mins: 2= Nausea/Diarrhea Tremor Observation of Outstretched Hands: 2= Slight Tremor Visible Yawning Observation: 1= 1-2x During Session Anxiety or Irritability: 2=Irritable/Anxious Goose Flesh Skin: 0=Smooth Skin COWS Score: 16 [facility] Progress Note (SOAP) Subjective: alert,irritable,anxious,interrupted sleep,tremor,pain in the body and back Objective: 03/09/18 09:36 Vital Signs Temperature 99.3 F 03/08/18 22:10 Pulse Rate 62 03/09/18 07:20 Respiratory Rate 16 03/09/18 07:20 Blood Pressure 125/54 03/09/18 07:20 O2 Sat by Pulse Oximetry (%) ekg nsr [id number] no chest pain,no sob,no dizziness labs pending Assessment: 03/09/18 09:38 withdrawal symptom Plan: continue detox
[2018-03-09] MEDS: PATIENT'S OWN MEDICATION (NON-FORMULARY) (Fluconazole [Fluconazole] 200 MG) PO SCH (09:51)
[2018-03-09] MEDS: PATIENT'S OWN MEDICATION (NON-FORMULARY) (Amoxicillin/Potassium Clav [Amox-Clav 875-125 Mg PO SCH (09:51)
[2018-03-09] MEDS: BACITRACIN 0.9 GM PACKET TP SCH ×4 (09:51→23:30)
[2018-03-09] MEDS: PATIENT'S OWN MEDICATION (NON-FORMULARY) (Sulfamethoxazole/Trimethoprim [Sulfamethoxazole- PO SCH (09:52)
[2018-03-09] MEDS: NICOTINE 14 MG/24 HOURS TOPICAL PATCH TD SCH (09:55)
[2018-03-09] MEDS ORDERED: PRENATAL VITAMINS W/ FOLIC ACID TABLET (FP) PO SCH (10:00)
[2018-03-09] MEDS ORDERED: METHADONE HCL 10 MG TABLET (FOR DETOX USE ONLY) PO SCH (10:00)
[2018-03-09 10:13] LABS: HEMOGLOBIN 7.2 GM/dL (11.7-16.9); MCH 25.3 pg (25.7-33.7); MCHC 32.6 g/dl (32.0-35.9); MEAN CELL VOLUME 77.6 fl (80-96); MEAN PLT VOLUME 9.6 fl (7.5-11.1); PLATELET COUNT 411 K/MM3 (134-434); RBC 2.84 M/mm3 (4.00-5.60); RDW 14.9 % (11.9-15.9); WHITE BLOOD COUNT 7.1 K/mm3 (4.0-10.0)
[2018-03-09 10:31] LABS: CHLORIDE 104 mmol/L (98-107); POTASSIUM 3.2 mmol/L (3.5-5.1); SGOT/AST 53 U/L (15-37); SODIUM 138 mmol/L (136-145)
[2018-03-09 10:42] LABS: ALBUMIN 1.7 g/dl (3.4-5.0); ALK PHOS 372 U/L (45-117); ANION GAP 10 (8-16); BILIRUBIN,TOTAL 0.3 mg/dL (0.2-1.0); BLOOD UREA NITROGEN 10 mg/dL (7-18); CALCIUM 7.4 mg/dL (8.5-10.1); CO2 24 mmol/L (21-32); CREATININE 0.6 mg/dL (0.7-1.3); GLUCOSE,RANDOM 104 mg/dL (74-106); SGPT/ALT 41 U/L (12-78); TOT PROT 6.5 g/dl (6.4-8.2)
[2018-03-09] MEDS ORDERED: PATIENT'S OWN MEDICATION (NON-FORMULARY) (Sulfamethoxazole/Trimethoprim [Sulfamethoxazole- PO SCH (18:00)
[2018-03-09] MEDS ORDERED: PATIENT'S OWN MEDICATION (NON-FORMULARY) (Fluconazole [Fluconazole] 200 MG) PO SCH (18:00)
[2018-03-09] MEDS ORDERED: PATIENT'S OWN MEDICATION (NON-FORMULARY) (Amoxicillin/Potassium Clav [Amox-Clav 875-125 Mg PO SCH (18:00)
--- NOTE | 2018-03-09 20:18 | PN ---
[facility] Progress Note Note: Vital Signs Temperature 97 F L 03/09/18 18:22 Pulse Rate 104 H 03/09/18 18:22 Respiratory Rate 18 03/09/18 18:22 Blood Pressure 119/75 03/09/18 18:22 O2 Sat by Pulse Oximetry (%) Laboratory Last Values WBC 7.1 K/mm3 (4.0-10.0) 03/09/18 06:00 RBC 2.84 M/mm3 (4.00-5.60) L 03/09/18 06:00 Hgb 7.2 GM/dL (11.7-16.9) L 03/09/18 06:00 Hct 22.0 % (35.4-49) L D 03/09/18 06:00 MCV 77.6 fl (80-96) L 03/09/18 06:00 MCH 25.3 pg (25.7-33.7) L 03/09/18 06:00 MCHC 32.6 g/dl (32.0-35.9) 03/09/18 06:00 RDW 14.9 % (11.9-15.9) 03/09/18 06:00 Plt Count 411 K/MM3 (134-434) D 03/09/18 06:00 MPV 9.6 fl (7.5-11.1) 03/09/18 06:00 Sodium 138 mmol/L (136-145) 03/09/18 06:00 Potassium 3.2 mmol/L (3.5-5.1) L 03/09/18 06:00 Chloride 104 mmol/L (98-107) 03/09/18 06:00 Carbon Dioxide 24 mmol/L (21-32) 03/09/18 06:00 Anion Gap 10 (8-16) 03/09/18 06:00 BUN 10 mg/dL (7-18) 03/09/18 06:00 Creatinine 0.6 mg/dL (0.7-1.3) L 03/09/18 06:00 Creat Clearance w eGFR > 60 (>60) 03/09/18 06:00 Random Glucose 104 mg/dL (74-106) D 03/09/18 06:00 Calcium 7.4 mg/dL (8.5-10.1) L 03/09/18 06:00 Total Bilirubin 0.3 mg/dL (0.2-1.0) 03/09/18 06:00 AST 53 U/L (15-37) H D 03/09/18 06:00 ALT 41 U/L (12-78) D 03/09/18 06:00 Alkaline Phosphatase 372 U/L (45-117) H 03/09/18 06:00 Total Protein 6.5 g/dl (6.4-8.2) 03/09/18 06:00 Albumin 1.7 g/dl (3.4-5.0) L 03/09/18 06:00 RPR Titer Nonreactive (NONREACTIVE) 03/09/18 06:00 Abnormal labs Kdur 20meq daily PO Ferrous Sulfate 325 mg QD PO repeat CBC and CMP continue to monitor
[2018-03-09] MEDS ORDERED: POTASSIUM CHLORIDE TABS 20 MEQ TABLET.ER (FP) PO SCH (20:30)
[2018-03-09] MEDS ORDERED: FERROUS SO4 325 MG TABLET (FP) PO SCH (22:00)
[2018-03-09 22:20] VITALS: BP 99/51; PULSE 77; TEMP 99.1
[2018-03-09] MEDS: THIAMINE HCL 100 MG TABLET (FP) PO SCH (23:33)
[2018-03-10] MEDS ORDERED: METHADONE HCL 5 MG TABLET (FOR DETOX USE ONLY) PO SCH (10:00)
[2018-03-10] MEDS ORDERED: chlordiazePOXIDE 5 MG CAPSULE PO SCH (17:00)
[2018-03-11] MEDS ORDERED: chlordiazePOXIDE HCL 10 MG CAPSULE PO SCH (17:00)
[2018-03-12] MEDS ORDERED: METHADONE HCL 10 MG TABLET (FOR DETOX USE ONLY) PO SCH (10:00)
[2018-03-13] MEDS ORDERED: METHADONE HCL 5 MG TABLET (FOR DETOX USE ONLY) PO SCH (06:00)
== END 2018-03-09 22:50 | disposition short-term general hospital (02) | DRG 773 ==
LOC: YASAS 10:30 → Y6N 13:01
PROVIDERS: ADMIT Surgery; ATTEND Surgery
PROC: HZ2ZZZZ Detoxification Services for Substance Abuse Treatment (ICD-10-PCS; principal; 2018-03-08)
DX: F11.23 Opioid dependence with withdrawal (principal); F10.230 Alcohol dependence with withdrawal, uncomplicated; F14.20 Cocaine dependence, uncomplicated; F17.210 Nicotine dependence, cigarettes, uncomplicated; B20 Human immunodeficiency virus [HIV] disease; F19.24 Other psychoactive substance dependence with psychoactive substance-induced mood disorder; F31.9 Bipolar disorder, unspecified; B18.2 Chronic viral hepatitis C; R63.4 Abnormal weight loss; Z68.1 Body mass index [BMI] 19.9 or less, adult; Z91.5 Personal history of self-harm; Z88.8 Allergy status to other drugs, medicaments and biological substances; Z91.018 Allergy to other foods
CPT/HCPCS: 36415; 80053; 85027; 86593; 93005; 93010